=== PATIENT | male | born 1940 | race Caucasian/White ===

== ENCOUNTER 2019-06-22 15:29 | Emergency (ER) | payer OTHER ==
[2019-06-22 16:35] VITALS: BMI 33.0
[2019-06-22] MEDS ORDERED: METOCLOPRAMIDE HCL INJECTION 10 MG/2 ML VIAL IVPUSH ONE (18:18)
--- NOTE | 2019-06-22 18:22 | PDOC ---
Attending Attestation - Resident Resident Name: Servando William - ED Attending Attestation I have performed the following: I have examined & evaluated the patient, The case was reviewed & discussed with the resident, I agree w/resident's findings & plan - HPI HPI: 06/22/19 20:41 Pt comes with headache and he is anxious. He also states that he is unable to sleep because he is anxious after having been stuck in an elevator 2 days ago; He was taking his building's elevator from the apartment down to the [facility]. Elevator is not heated and pt was stuck for 3 hrs. Now with a viral illness and he has headache and low grade temp. No body aches or other complaints. Pt has no runny nose or cough. He has taken nothing for the headache. - Physicial Exam PE: 06/22/19 20:45 Agree with resident exam. HEENT normal No nystagmus Neuro exam is normal Pt has normal heart and lung exam Abd soft NT ND No flank pain No ext swelling and no rashes. Pt's face is slightly flushed - Medical Decision Making 06/22/19 20:46 Pt is requesting something for anxiety He will be given a dose of ativan here and he will be sent home with a week supply of buspar. Follow with PMD. 06/22/19 21:39 Vastly imrpoved; ready to go home.
[2019-06-22] MEDS ORDERED: METOCLOPRAMIDE HCL INJECTION 10 MG/2 ML VIAL ONE (18:25)
--- NOTE | 2019-06-22 18:35 | PDOC ---
History of Present Illness - General History Source: Patient Exam Limitations: No Limitations - History of Present Illness Initial Comments: 78 y/o F, pmh of htn presents to the ED c/o of headache, weakness and left sided chest discomfort of 3 day duration that began on and has since worsened. Pt reports that on he was stuck in an elevator fro 3 hours outside in cold temperatures, during which he had a mild anxiety attack. His symptoms have since worsened. Pt has not taken anything for the headaches or chest discomfort. He has seen music writer and has had a stress test two years go which was negative. He also reports a negative colonoscopy 2 yrs ago as well. Today pt denies f/c/n/v/d/abdominal pain/sob/numbness or tingling. 06/22/19 18:32 Severity: mild Associated Symptoms: reports: denies symptoms, chest pain, headaches, weakness. denies: cough, diaphoresis, fever/chills, nausea/vomiting, shortness of breath <Servando William - Last Filed: 06/22/19 19:45> <Ju Jones - Last Filed: 06/22/19 20:32> - General Chief Complaint: Headache Stated Complaint: HEADACHE Time Seen by Provider: 06/22/19 17:13 Past History - Travel Traveled outside of the country in the last 30 days: No Close contact w/someone who was outside of country & ill: No - Past Medical History Anemia: No Asthma: No Cancer: No Cardiac Disorders: No COPD: No Diabetes: Yes HTN: Yes Hypercholesterolemia: Yes Thyroid Disease: No - Immunization History Immunization Up to Date: No - Psycho Social/Smoking Cessation Hx Smoking History: Never smoked Have you smoked in the past 12 months: No Number of Cigarettes Smoked Daily: 0 If you are a former smoker, when did you quit?: 0 Information on smoking cessation initiated: No Hx Alcohol Use: No Drug/Substance Use Hx: No <Servando William - Last Filed: 06/22/19 19:45> <Ju Jones - Last Filed: 06/22/19 20:32> - Past Medical History Allergies/Adverse Reactions: Allergies Allergy/AdvReac Type Severity Reaction Status Date / Time No Known Drug Allergies Allergy Verified 06/22/19 16:17 Home Medications: Ambulatory Orders Aspirin Coated [Ecotrin -] 81 mg PO DAILY 06/22/19 Buspirone HCl [Buspar -] 5 mg PO BID #14 tablet 06/22/19 Colesevelam HCl 3.75 gm PO HS 06/22/19 Metoprolol Tartrate 50 mg PO TID 06/22/19 Pravastatin Sodium [Pravachol (Nf)] 20 mg PO HS 06/22/19 Review of Systems - Review of Systems Able to Perform ROS?: Yes Is the patient limited Stateless proficient: No Constitutional: Yes: Symptoms Reported, Weakness, Weight Stable. No: Chills, Diaphoresis, Fever HEENTM: Yes: Symptoms Reported Respiratory: Yes: Symptoms reported. No: Cough, Shortness of Breath, Wheezing Cardiac (ROS): Yes: Symptoms Reported, Chest Tightness. No: Chest Pain, Irregular Heart Rate ABD/GI: Yes: Symptoms Reported. No: Abdominal Distended, Diarrhea, Vomiting : Yes: Symptoms Reported. No: Dysuria Musculoskeletal: Yes: Symptoms Reported Integumentary: Yes: Symptoms Reported. No: Change in Color Neurological: Yes: Symptoms reported, Headache, Weakness, Dizziness. No: Seizure, Ataxia <Servando William - Last Filed: 06/22/19 19:45> *Physical Exam - Vital Signs Last Vital Signs Temp Pulse Resp BP Pulse Ox 98.0 F 64 16 136/61 95 06/22/19 16:02 06/22/19 16:02 06/22/19 16:02 06/22/19 16:02 06/22/19 16:02 - Physical Exam General Appearance: Yes: Nourished, Appropriately Dressed HEENT: positive: EOMI, RICH, Normal ENT Inspection, Pharynx Normal Neck: positive: Trachea midline, Normal Thyroid, Supple Respiratory/Chest: positive: Lungs Clear, Normal Breath Sounds Cardiovascular: positive: Regular Rhythm, Regular Rate, S1, S2. negative: Murmur, Gallop/S3, Gallop/S4 Vascular Pulses: Dorsalis-Pedis (R): 2+, Doralis-Pedis (L): 2+ Gastrointestinal/Abdominal: positive: Normal Bowel Sounds, Soft. 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, Fully Oriented, Normal Mood/Affect <Servando William - Last Filed: 06/22/19 19:45> - Vital Signs Last Vital Signs Temp Pulse Resp BP Pulse Ox 98.0 F 64 16 136/61 95 06/22/19 16:02 06/22/19 16:02 06/22/19 16:02 06/22/19 16:02 06/22/19 16:02 <Ju Jones - Last Filed: 06/22/19 20:32> ED Treatment Course - LABORATORY CBC & Chemistry Diagram: 06/22/19 18:20 06/22/19 18:20 <Servando William - Last Filed: 06/22/19 19:45> - LABORATORY CBC & Chemistry Diagram: 06/22/19 18:20 06/22/19 18:20 - ADDITIONAL ORDERS Additional order review: Laboratory Results 06/22/19 18:20 Sodium 143 Potassium 4.3 Chloride 109 H Carbon Dioxide 26 Anion Gap 8 BUN 18.4 H Creatinine 1.1 Est GFR (CKD-EPI)AfAm 74.13 Est GFR (CKD-EPI)NonAf 63.96 Random Glucose 66 L Calcium 9.1 Total Bilirubin 0.9 AST 22 ALT 27 Alkaline Phosphatase 63 Creatine Kinase 130 Troponin I < 0.02 Total Protein 7.6 Albumin 3.6 06/22/19 18:20 RBC 4.56 MCV 97.3 H MCHC 33.3 RDW 14.0 MPV 8.2 Neutrophils % 46.5 Lymphocytes % 34.5 Monocytes % 10.1 Eosinophils % 7.3 H Basophils % 1.6 - Medications Given in the ED: ED Medications Discontinued Medications Generic Name Dose Route Start Last Admin Trade Name Freq PRN Reason Stop Dose Admin Dextrose/Sodium Chloride 500 mls @ 1,000 mls/hr 06/22/19 19:31 06/22/19 20:22 D5-Ns - IV 06/22/19 20:00 1,000 mls/hr ONCE ONE Administration Metoclopramide HCl 10 mg 06/22/19 18:18 06/22/19 19:18 Reglan Injection - IVPUSH 06/22/19 18:19 10 mg ONCE ONE Administration <Ju Jones - Last Filed: 06/22/19 20:32> Medical Decision Making - Medical Decision Making 78 y/o F, pmh of htn presents to the ED c/o of headache, weakness and left sided chest discomfort of 3 day duration #Chest discomfort r/o ACS EKG Cardiac profile trend trops cbc, cmp #Headache neuro exam normal, no evidence of neuro pathology monitor reasses neuro exam Reglan 10 IV for pain 06/22/19 18:40 <Servando William - Last Filed: 06/22/19 19:45> Discharge - Discharge Information Problems reviewed: Yes <Servando William - Last Filed: 06/22/19 19:45> - Discharge Information Problems reviewed: Yes - Admission No <Ju Jones - Last Filed: 06/22/19 20:32> - Discharge Information Clinical Impression/Diagnosis: Viral illness, Panic attack Condition: Improved Disposition: HOME - Additional Discharge Information Prescriptions: Buspirone HCl [Buspar -] 5 mg PO BID #14 tablet - Follow up/Referral Referrals: Caleb Johsnon MD [Primary Care Provider] - - Patient Discharge Instructions Patient Printed Discharge Instructions: Easing a Headache the Natural Way, Combating Dizziness in Older Adults, Anxiety and Panic Attacks (Alternative Therapy), Panic Disorder Additional Instructions: You were seen in the Emergency department for headaches, chest discomfort and dizziness While in the hospital, we evaluated you with lab work, blood work and EKG's. We found that all your tests were normal. We gave you medications and your symptoms resolved. Please take all your medications as prescribed Please follow up with your primary care physician in 1 week Return to the Emergency room, if you experience any worsening of your symptoms, headaches, chest pain, nausea, vomit, or worsening of your condition - Post Discharge Activity
[2019-06-22 18:37] LABS: BASO % 1.6 % (0-2.0); EOS % 7.3 % (0-4.5); HEMATOCRIT 44.4 % (35.4-49); HEMOGLOBIN 14.8 GM/dL (11.7-16.9); LYMPH % 34.5 % (8-40); MCH 32.4 pg (25.7-33.7); MCHC 33.3 g/dl (32.0-35.9); MEAN CELL VOLUME 97.3 fl (80-96); MEAN PLT VOLUME 8.2 fl (7.5-11.1); MONO % 10.1 % (3.8-10.2); NEUT % 46.5 % (42.8-82.8); PLATELET COUNT 173 K/MM3 (134-434); RBC 4.56 M/mm3 (4.00-5.60); WHITE BLOOD COUNT 7.7 K/mm3 (4.0-10.0)
[2019-06-22 19:07] LABS: ALBUMIN 3.6 g/dl (3.4-5.0); ALK PHOS 63 U/L (45-117); ANION GAP 8 MMOL/L (8-16); BILIRUBIN,TOTAL 0.9 mg/dL (0.2-1); BLOOD UREA NITROGEN 18.4 mg/dL (7-18); CALCIUM 9.1 mg/dL (8.5-10.1); CHLORIDE 109 mmol/L (98-107); CO2 26 mmol/L (21-32); CREATININE 1.1 mg/dL (0.55-1.3); GLUCOSE,RANDOM 66 mg/dL (74-106); POTASSIUM 4.3 mmol/L (3.5-5.1); SGOT/AST 22 U/L (15-37); SGPT/ALT 27 U/L (13-61); SODIUM 143 mmol/L (136-145); TOT PROT 7.6 g/dl (6.4-8.2)
[2019-06-22] MEDS ORDERED: DEXTROSE 5%-NORMAL SALINE 500 ML IV ONE (19:31)
[2019-06-22] MEDS ORDERED: LORazepam 2 MG TABLET PO ONE (20:18)
[2019-06-22] MEDS ORDERED: IBUPROFEN 600 MG TABLET (FP) PO ONE ×2 (20:32→21:30)
[2019-06-22 21:12] VITALS: TEMP 98
[2019-06-22] MEDS ORDERED: LORazepam 0.5 MG TABLET ONE (21:30)
[2019-06-22 21:47] VITALS: BP 128/60; PULSE 69
--- NOTE | 2019-06-23 18:37 | EKG ---
Test Reason : Blood Pressure : / mmHG Vent. Rate : 062 BPM Atrial Rate : 062 BPM P-R Int : 204 ms QRS Dur : 086 ms QT Int : 392 ms P-R-T Axes : 084 007 047 degrees QTc Int : 397 ms POOR DATA QUALITY, INTERPRETATION MAY BE ADVERSELY AFFECTED NORMAL SINUS RHYTHM NORMAL ECG NO PREVIOUS ECGS AVAILABLE Confirmed by DANIEL NORMAN MD ([id number]) on 06/23/2019 6:37:34 PM Referred By: Confirmed By:DANIEL NORMAN MD
== END 2019-06-22 21:47 | disposition home or self-care (01) ==
LOC: JER 15:29
PROC: 3E033GC Introduction of Other Therapeutic Substance into Peripheral Vein, Percutaneous Approach (ICD-10-PCS; principal; 2019-06-22)
DX: B34.9 Viral infection, unspecified (principal); F41.9 Anxiety disorder, unspecified; I10 Essential (primary) hypertension; E11.9 Type 2 diabetes mellitus without complications; Z79.84 Long term (current) use of oral hypoglycemic drugs; E78.00 Pure hypercholesterolemia, unspecified
CPT/HCPCS: 36415; 80053; 82550; 84484; 85025; 93005; 93010; 99283-25